=== PATIENT | female | born 1965 | race Two or more races ===

== ENCOUNTER 2023-08-26 16:48 | Emergency (ER) | payer OTHER ==
[~2023-08-26] VITALS: Ht 160 cm; Wt 52.2 kg
[2023-08-26 18:32] LABS: HEMATOCRIT 32.6 % (36.0-45.00); HEMOGLOBIN 10.4 g/dL (12.0-15.00); MEAN CELL VOLUME 70.8 fL (80.00-100.00); MEAN CORPUSCULAR HEMOGLOBIN 22.5 pg (27.00-32.0); MEAN CORPUSCULAR HGB CONC 31.8 g/dl (32.0-36.0); PLATELET COUNT 196 K/uL (150-450); RED CELL DISTRIBUTION WIDTH 13.7 % (11.5-14.5)
== END 2023-08-26 19:17 | disposition home or self-care (01) ==
LOC: ER 16:48
PROVIDERS: General Practice
DX: U07.1 COVID-19 (principal)